=== PATIENT | female | born 1985 | race African-American/Black ===

== ENCOUNTER 2021-07-12 12:42 | Emergency (ER) | payer OTHER ==
[~2021-07-12] VITALS: Ht 162.6 cm; Wt 110.5 kg
[2021-07-12] MEDS ORDERED: METHYLPREDNISOLONE SOD SUCC 125 MG/2 ML VIAL IM STA (13:11)
[2021-07-12] MEDS ORDERED: ALBUTEROL (0.083%) 2.5MG/3ML NEB HHN STA ×2 (13:11→14:48)
[2021-07-12] MEDS ORDERED: IPRATROPIUM BROMIDE (0.02%) 0.5MG/2.5ML NEB HHN STA ×2 (13:11→14:48)
[2021-07-12] MEDS ORDERED: P50 PO (14:59)
[2021-07-12] MEDS ORDERED: ALBU05 NEB (14:59)
[2021-07-12 15:55] VITALS: BP 145/78
== END 2021-07-12 15:56 | disposition home or self-care (01) ==
LOC: ER 12:42
DX: J45.901 Unspecified asthma with (acute) exacerbation (principal); G43.909 Migraine, unspecified, not intractable, without status migrainosus; Z88.6 Allergy status to analgesic agent
CPT/HCPCS: 94640; 96372; 99284; J2930; Z7610

== ENCOUNTER 2021-09-19 12:24 | Emergency (ER) | payer OTHER ==
[~2021-09-19] VITALS: Ht 162.6 cm; Wt 109.0 kg
[~2021-09-19 12:24] MED LIST: ALBU05 NEB; P50 PO
[2021-09-19] MEDS ORDERED: IPRATROPIUM BROMIDE (0.02%) 0.5MG/2.5ML NEB HHN STA (12:55)
[2021-09-19] MEDS ORDERED: PREDNISONE 20MG TABLET PO STA (12:55)
[2021-09-19] MEDS ORDERED: ALBUTEROL (0.083%) 2.5MG/3ML NEB HHN STA (12:55)
[2021-09-19] MEDS ORDERED: NEBU-270 MC (13:39)
[2021-09-19] MEDS ORDERED: BENZ-16 MT (13:39)
[2021-09-19] MEDS ORDERED: ALBU6.7H9 INH (13:39)
[2021-09-19] MEDS ORDERED: P50 PO (13:39)
[2021-09-19] MEDS ORDERED: ALBU05 NEB (13:39)
[2021-09-19] MEDS ORDERED: ACETAMINOPHEN 325MG TABLET PO ONE (13:45)
[2021-09-19 13:46] VITALS: BP 128/86
== END 2021-09-19 13:47 | disposition home or self-care (01) ==
LOC: ER 12:24
DX: J06.9 Acute upper respiratory infection, unspecified (principal); Z88.6 Allergy status to analgesic agent; Z86.59 Personal history of other mental and behavioral disorders
CPT/HCPCS: 94640; 99283; J7512; Z7610